=== PATIENT | female | born 1980 | race African-American/Black ===

== ENCOUNTER 2019-02-06 09:47 | Inpatient (IN) ==
[2019-02-06] MEDS ORDERED: ceFAZolin 3,000 MG in SYRINGE 1 EACH IV ONE (11:44)
[2019-02-06] MEDS ORDERED: CITRIC ACID/SODIUM CITRATE 30 ML UDCUP PO ONE (11:44)
[2019-02-06 12:14] LABS: Eosinophils % 0.3 % (0.00-10.9); Hematocrit 29.9 VOL% (35.7-47.0); Hemoglobin 9.8 GM/DL (12.0-16.0); Immature Granulocytes % 1.3 %; Lymphocytes # 1.1 10*3/uL (1.4-4.0); Lymphocytes % 13.5 % (21.3-54.2); Mean Corpuscular HGB Conc 32.8 GM/DL (32-36); Mean Corpuscular Volume 91.7 FL (87-102); Mean Platelet Volume 10.3 FL (9.6-12.0); Monocytes % 5.8 % (1.7-12.7); Neutrophils % 79.1 % (38.7-73.9); Platelet Count 296 T/CUMM (130-400); Red Blood Count 3.26 MC/CUMM (3.8-5.5); Red Cell Distribution Width 14.5 % (9.3-17.3); White Blood Count 7.8 T/CUMM (4-12)
[2019-02-06 12:44] LABS: Alanine Aminotransferase 22 U/L (13-56); Albumin 2.5 G/DL (3.4-5.0); Alkaline Phosphatase 165 U/L (45-117); Aspartate Amino Transferase 21 U/L (0-37); Bilirubin,Total < 0.39 MG/DL (0.2-1.0); Blood Urea Nitrogen 8 MG/DL (7-18); Calcium 8.3 MG/DL (8.5-10.1); Estimated Glom Filtration Rate 167 ML/MIN; Glucose 93 MG/DL (74-106); Osmolality,Calculated 265.2 MOS/KG (273-304); Total Protein 7.7 G/DL (6.4-8.3)
[2019-02-06] MEDS: LACTATED RINGERS 1,000 ML IV SCH (12:56)
[2019-02-06] MEDS ORDERED: OXYTOCIN/LR 20 UNIT/1,000 ML BAG IV ONE (13:49)
[2019-02-06] MEDS ORDERED: OXYTOCIN 10 UNIT/ML VIAL IV ONE (13:54)
[2019-02-06] MEDS ORDERED: METOCLOPRAMIDE 10 MG/2 ML VIAL IV ONE (13:56)
[2019-02-06] MEDS ORDERED: BUPIVACAINE 0.5% 50 ML VIAL ONE (14:08)
[2019-02-06] MEDS ORDERED: fentaNYL 100 MCG/2 ML VIAL ONE (14:08)
[2019-02-06] MEDS ORDERED: DEXAMETHASONE 4 MG/1 ML VIAL ONE (14:08)
[2019-02-06] MEDS ORDERED: EPINEPHrine 1 MG/ML VIAL ONE (14:08)
[2019-02-06] MEDS ORDERED: BUPIVACAINE SPINAL 0.75% 2 ML AMP SPINAL ONE (14:08)
[2019-02-06] MEDS ORDERED: KETOROLAC 30 MG/1 ML VIAL ONE (14:08)
[2019-02-06] MEDS ORDERED: ONDANSETRON 4 MG/2 ML VIAL ONE ×2 (14:08→20:18)
[2019-02-06] MEDS ORDERED: MORPHINE 10 MG/10 ML VIAL ONE (14:08)
[2019-02-06] MEDS ORDERED: LACTATED RINGERS 1,000 ML IV ONE (14:09)
[2019-02-06] MEDS ORDERED: PHENYLEPHRINE 1 MG/10 ML SYRINGE IV ONE (14:09)
[2019-02-06] MEDS ORDERED: FAMOTIDINE 20 MG/2 ML VIAL IV ONE (15:30)
[2019-02-06 17:48] LABS: Cord Arterial Blood HCO3 25.9 MMOL/L
[2019-02-06 17:51] LABS: Cord Venous Blood HCO3 23.8 MMOL/L; Cord Venous Blood PO2 28.6 MMHG
[2019-02-06 18:00] LABS: Apearance,Urine CLEAR (Clear); Bilirubin,Urine Negative (Negative); Blood, Urine Negative (Negative); Glucose,Urine (UA) Negative (Negative); Ketones,Urine 5 mg/dL (Negative); Mucus,Urine Occasional /LPF (Occasional); Nitrite,Urine Negative (Negative); Protein,Urine Negative; RBC,Urine <1 /HPF (0-4); Squamous Epithelial Cell,Urine Occasional /HPF (0-10); Urine Color Straw (Yellow); Urine Specific Gravity 1.013 (1.001-1.035); Urine Urobilinogen < 2.0 EU/DL (0.2-1.0); WBC,Urine <1 /HPF (0-6)
[2019-02-06] MEDS ORDERED: ONDANSETRON 4 MG/2 ML VIAL IV PRN (20:17)
[2019-02-06] MEDS: KETOROLAC 30 MG/1 ML VIAL IV SCH (22:13)
[2019-02-07] MEDS ORDERED: SIMETHICONE CHEW 80 MG TABLET PO PRN (00:31)
[2019-02-07] MEDS ORDERED: ONDANSETRON 4 MG/2 ML VIAL IV PRN (00:31)
[2019-02-07] MEDS ORDERED: RHO(D) IMMUNE GLOBULIN 300 MCG SYRINGE IM ONE (00:31)
[2019-02-07] MEDS ORDERED: OXYTOCIN/LR 20 UNIT/1,000 ML BAG IV ONE (00:31)
[2019-02-07] MEDS ORDERED: ACETAMINOPHEN 325 MG TABLET PO PRN (00:31)
[2019-02-07] MEDS: ceFAZolin 1,000 MG in SYRINGE 1 EACH IV SCH ×2 (00:41→08:59)
[2019-02-07] MEDS: LACTATED RINGERS 1,000 ML IV SCH (02:10)
[2019-02-07] MEDS: KETOROLAC 30 MG/1 ML VIAL IV SCH ×3 (04:06→16:00)
[2019-02-07 05:49] LABS: Basophils % 0.1 % (0.0-0.8); Hematocrit 25.8 VOL% (35.7-47.0); Hemoglobin 8.6 GM/DL (12.0-16.0); Immature Granulocytes % 0.5 %; Immature Granulocytes Absolute 0.07 #; Lymphocytes % 7.7 % (21.3-54.2); Mean Corpuscular HGB Conc 33.3 GM/DL (32-36); Mean Corpuscular Volume 88.7 FL (87-102); Mean Platelet Volume 11.2 FL (9.6-12.0); Monocytes % 6.1 % (1.7-12.7); Neutrophils % 85.6 % (38.7-73.9); Platelet Count 273 T/CUMM (130-400); Red Blood Count 2.91 MC/CUMM (3.8-5.5); Red Cell Distribution Width 14.3 % (9.3-17.3); White Blood Count 12.9 T/CUMM (4-12)
[2019-02-07] MEDS: DOCUSATE SODIUM 100 MG CAPSULE PO SCH ×3 (09:00→21:32)
[2019-02-07] MEDS: MULTIVITAMIN (PRENATAL) TABLET PO SCH (09:06)
[2019-02-07] MEDS ORDERED: IBUPROFEN 800 MG TABLET ONE ×2 (11:06→17:59)
[2019-02-07] MEDS: IBUPROFEN 800 MG TABLET PO SCH (19:51)
[2019-02-07] MEDS: FERROUS SULFATE 325 MG TABLET PO SCH (21:32)
[2019-02-08] MEDS: IBUPROFEN 800 MG TABLET PO SCH ×3 (04:29→21:25)
[2019-02-08] MEDS: DOCUSATE SODIUM 100 MG CAPSULE PO SCH ×2 (08:58→21:26)
[2019-02-08] MEDS: ASPIRIN CHEW 81 MG TABLET PO SCH (08:58)
[2019-02-08] MEDS: MULTIVITAMIN (PRENATAL) TABLET PO SCH (08:59)
[2019-02-08] MEDS: FERROUS SULFATE 325 MG TABLET PO SCH ×2 (08:59→21:26)
[2019-02-08] MEDS: MAGNESIUM HYDROXIDE SUSP 30 ML UDCUP PO PRN ×2 (08:59→21:26)
[2019-02-09] MEDS: IBUPROFEN 800 MG TABLET PO SCH (03:10)
[2019-02-09] MEDS: DOCUSATE SODIUM 100 MG CAPSULE PO SCH (09:13)
[2019-02-09] MEDS: ASPIRIN CHEW 81 MG TABLET PO SCH (09:13)
[2019-02-09] MEDS: FERROUS SULFATE 325 MG TABLET PO SCH (09:13)
[2019-02-09] MEDS: MULTIVITAMIN (PRENATAL) TABLET PO SCH (09:14)
[2019-02-09 10:40] VITALS: BP 91/59
== END 2019-02-09 12:45 | disposition home or self-care (01) | DRG 540 ==
LOC: N.LDOUT 09:47 → N.LD 09:49 → N.OB 22:40
PROVIDERS: ADMIT Obstetrics & Gynecology; ATTEND Obstetrics & Gynecology